=== PATIENT | male | born 1945 | race Caucasian/White ===

== ENCOUNTER 2017-01-27 15:36 | Observation (INO) | payer MEDICARE, MEDICAID ==
[~2017-01-27] VITALS: Ht 157.5 cm; Wt 73.0 kg
[~2017-01-27 15:36] MED LIST: ALPR0.5T6 PO; AMLO-147 PO; ATOR80TA75 PO; HYDR-2934 PO; IMIQ1CRE14; LISI10TA2 PO; LOPE2CAP PO; METF500T3 PO; MICO1POW; NAPR-688 PO; OMEG-135 PO; OMEP20CA16 PO
[2017-01-27] MEDS ORDERED: ASPIRIN 325 MG TAB PO STA (16:58)
[2017-01-27] MEDS ORDERED: NITROGLYCERIN 2% 1 GM OINT PKT TD STA (16:58)
[2017-01-27 17:25] LABS: ADD SCAN DIFF NO
[2017-01-27 17:28] LABS: BASOPHIL # 0.1 10^3/ul (0.0-0.1); BASOPHILS % 0.7 % (0.0-2.0); EOSINOPHILS # 0.3 10^3/ul (0.0-0.5); EOSINOPHILS % 4.9 % (0.0-7.0); LYMPHOCYTES # 1.9 10^3/ul (0.8-2.9); LYMPHOCYTES % 28.1 % (15.0-51.0); MEAN CORPUSCULAR HGB CONC 33.3 g/dl (32.0-37.0); MEAN CORPUSCULAR VOLUME 84.1 fl (82.0-101.0); MEAN PLATELET VOLUME 11.7 fl (7.4-10.4); MONOCYTE # 0.4 10^3/ul (0.3-0.9); MONOCYTES % 6.6 % (0.0-11.0); NEUTROPHILS % 59.4 % (39.0-77.0); PLATELET COUNT 230 10^3/UL (140-415); RED BLOOD COUNT 4.64 10^6/ul (4.70-6.10); RED CELL DISTRIBUTION WIDTH 14.7 % (11.5-14.5); WHITE BLOOD COUNT 6.7 10^3/ul (4.8-10.8)
[2017-01-27] MEDS ORDERED: LISI40TA9 PO (17:32)
[2017-01-27] MEDS ORDERED: TAMS-14 PO (17:32)
[2017-01-27] MEDS ORDERED: ESCI20TA PO (17:32)
[2017-01-27] MEDS ORDERED: EZET10TA3 PO (17:32)
[2017-01-27] MEDS ORDERED: FER325 PO (17:33)
[2017-01-27 17:37] VITALS: TEMP 98
[2017-01-27] MEDS ORDERED: DIPH1TAB25 PO (17:37)
--- NOTE | 2017-01-27 17:47 | RADRPT ---
PROCEDURE: XR Chest. CLINICAL INDICATION: Chest pain. TECHNIQUE: Single frontal view. COMPARISON: None. FINDINGS: There is mild atelectasis at the lung bases. The lungs are otherwise clear. The heart size is normal. There is no pleural effusion. There is no pneumothorax. IMPRESSION: 1. Mild atelectasis at the lung bases. 2. Otherwise normal chest x-ray. RPTAT: QQ .Darryl Richardson MD, MD Date Time Electronically viewed and signed by .Darryl Richardson MD, MD on 01/27/2017 17:47 .R/
[2017-01-27 17:48] LABS: CHLORIDE 101 mmol/L (97-110); SODIUM 139 mmol/L (135-144)
[2017-01-27 17:51] LABS: ANION GAP 15 (8-16); CARBON DIOXIDE 27 mmol/L (21-31); CREATININE 1.13 mg/dl (0.61-1.24)
[2017-01-27 17:52] LABS: BLOOD UREA NITROGEN 16 mg/dl (7-20); CALCIUM 9.4 mg/dl (8.4-10.2); GLUCOSE 93 mg/dl (70-220)
[2017-01-27 18:05] LABS: TROPONIN-I < 0.012 ng/ml (0.00-0.12)
--- NOTE | 2017-01-27 20:39 | ERA ---
ER Documentation Chief Complaint Date/Time DATE: 01/27/17 TIME: 20:32 Chief Complaint chest pain radaites to the back HPI This is a 71-year-old male who signs of substernal chest pain over the past 2-3 days. Describes the pain as a pressure sensation is getting worse happens with ambulation and at rest. The pain is pressure that radiates to his neck with shortness of breath and sweaty. Patient says he has diabetes, high cholesterol, hypertension. She is currently has no pain. ROS All systems reviewed and are negative except as per history of present illness. Medications Home Meds Reported Medications Diphenoxylate HCl/Atropine (Diphenoxylate-Atrop 2.5-0.025) 1 Each Tablet, 2.5- 25 PO Q8, #30 01/27/17 Ferrous Sulfate* (Ferrous Sulfate*) 325 Mg Tabec, 325 MG PO BID, TAB 01/27/17 Lisinopril* (Lisinopril*) 40 Mg Tablet, 40 MG PO DAILY, #30 TAB 01/27/17 Tamsulosin Hcl* (Flomax*) 0.4 Mg Cap.er.24h, 0.4 MG PO DAILY, CAP 01/27/17 Ezetimibe* (Zetia*) 10 Mg Tablet, 10 MG PO HS, TAB 01/27/17 Escitalopram Oxalate* (Lexapro*) 20 Mg Tablet, 20 MG PO DAILY, #30 TAB 01/27/17 Metformin Hcl* (Metformin Hcl* ER) 500 Mg Tab.sr.24h, PO DAILY 05/01/13 Amlodipine Besylate* (Amlodipine Besylate*) 10 Mg Tablet, PO DAILY 05/01/13 Discontinued Reported Medications Omeprazole* (Omeprazole*) 20 Mg Capsule.dr, PO BID 05/01/13 Naproxen* (Naproxen*) 500 Mg Tablet, PO BID 05/01/13 Miconazole (Miconazole Powder) 1 Gm Powder 05/01/13 Lisinopril* (Lisinopril*) 10 Mg Tablet, PO DAILY 05/01/13 Imiquimod (Imiquimod) 1 Each Cream.pack 05/01/13 Hydrocodone Bit/Acetaminophen (Hydrocodone-Apap 5-500 Tablet) 1 Tab Tablet, PO QID 05/01/13 Fish Oil* (Fish Oil*) 1,000 Mg Cap, 2 CAP PO DAILY 05/01/13 Atorvastatin* (Atorvastatin*) 80 Mg Tablet, PO DAILY 05/01/13 Alprazolam* (Alprazolam*) 0.5 Mg Tablet, PO HS 05/01/13 Discontinued Scripts Loperamide Hcl* (Imodium*) 2 Mg Capsule, 2 MG PO .AFTER EA LOOSE BM Y for DIARRHEA, #10 TAB Prov:MINESH KEITA MD 09/11/16 Allergies Allergies: Coded Allergies: Penicillins (Verified Allergy, Unknown, 01/27/17) celecoxib (Verified Allergy, Unknown, RASH, 01/27/17) egg (Verified Allergy, Unknown, 01/27/17) PMhx/Soc History of Surgery: Yes (R KNEE REPLACEMENT, BACK SURGERIES) Anesthesia Reaction: No Hx Neurological Disorder: Yes (STROKE) Hx Respiratory Disorders: No Hx Cardiac Disorders: Yes (HTN, CHF) Hx Psychiatric Problems: No Hx Miscellaneous Medical Probl: No (DM) Hx Alcohol Use: No Hx Substance Use: No Hx Tobacco Use: Yes Smoking Status: Former smoker FmHx Family History: No coronary disease Physical Exam Vitals Vital Signs Date Time Temp Pulse Resp B/P Pulse Ox O2 Delivery O2 Flow Rate FiO2 01/27/17 17:37 Nasal Cannula 2 01/27/17 17:37 98.0 58 15 152/65 100 Room Air 01/27/17 15:45 98.0 65 19 196/94 100 Physical Exam Const: Well-developed, well-nourished, disheveled Head: Atraumatic, normocephalic Eyes: Normal Conjunctiva, PERRLA, EOMI, normal sclera, no nystagmus ENT: Normal External Ears, Nose and Mouth, moist mucus membranes. Neck: Full range of motion. No meningismus, no lymphadenopathy. Resp: Clear to auscultation bilaterally, no wheezing, rhonchi, rales Cardio: Regular rate and rhythm, no murmurs, S1 S2 present Abd: Soft, non tender x 4, non distended. Normal bowel sounds, no guarding or rebound, no pulsitile abdominal masses or bruits Skin: No petechiae or rashes, no ecchymosis , no maculopapular rash Back: No midline or flank tenderness Ext: No cyanosis, or edema, FROM x 4, normal inspection, neurovascularly intact x 4 Neur: Awake and alert, STR 5/5 x 4, sensation intact x 4, no focal findings, cerebellum intact Psych: Normal Mood and Affect Result Diagram: 01/27/17 1716 01/27/17 1716 Results 24 hrs Laboratory Tests Test 01/27/17 17:16 White Blood Count 6.710^3/ul Red Blood Count 4.6410^6/ul Hemoglobin 13.0g/dl Hematocrit 39.0% Mean Corpuscular Volume 84.1fl Mean Corpuscular Hemoglobin 28.0pg Mean Corpuscular Hemoglobin Concent 33.3g/dl Red Cell Distribution Width 14.7% Platelet Count 37254^3/UL Mean Platelet Volume 11.7fl Neutrophils % 59.4% Lymphocytes % 28.1% Monocytes % 6.6% Eosinophils % 4.9% Basophils % 0.7% Nucleated Red Blood Cells % 0.0/100WBC Neutrophils # 4.010^3/ul Lymphocytes # 1.910^3/ul Monocytes # 0.410^3/ul Eosinophils # 0.310^3/ul Basophils # 0.110^3/ul Nucleated Red Blood Cells # 0.010^3/ul Sodium Level 139mmol/L Potassium Level 4.0mmol/L Chloride Level 101mmol/L Carbon Dioxide Level 27mmol/L Anion Gap 15 Blood Urea Nitrogen 16mg/dl Creatinine 1.13mg/dl Glucose Level 93mg/dl Calcium Level 9.4mg/dl Troponin I < 0.012ng/ml Current Medications Medications (Trade) Dose Ordered Sig/Herbert Route PRN Reason Start Time Stop Time Status Last Admin Dose Admin Aspirin (Aspirin) 325 mg ONCE STAT PO 01/27/17 16:58 01/27/17 17:01 DC 01/27/17 17:11 Nitroglycerin (Nitroglycerin 2% Oint) 1 inch ONCE STAT TD 01/27/17 16:58 01/27/17 17:01 DC 01/27/17 17:12 Procedures/MDM EKG: Rate/Rhythm: Normal sinus rhythm, left bundle branch block, left axis deviation QRS, ST, QT: NORMAL [place], wide QRS, QT] Impression: Abnormal EKG] PROCEDURE: XR Chest. CLINICAL INDICATION: Chest pain. TECHNIQUE: Single frontal view. COMPARISON: None. FINDINGS: There is mild atelectasis at the lung bases. The lungs are otherwise clear. The heart size is normal. There is no pleural effusion. There is no pneumothorax. IMPRESSION: 1. Mild atelectasis at the lung bases. 2. Otherwise normal chest x-ray. RPTAT: QQ .Darryl Richardson MD, MD Date Time Electronically viewed and signed by .Darryl Richardson MD, MD on 01/27/2017 17:47 .R/ CC: BRITANY PERALTA DO . Patient's symptoms are concerning for cardiac cause will require inpatient workup and continuous monitoring. Further w/u for ischemia, arrhythmia, PE or dissection will be deferred to the inpatient team. Accepting Care Team: Current data and ongoing care discussed. Time: Time of admission Primary Provider: keke Consulting: [XOXOXO] Outstanding Data: none Departure Diagnosis: Primary Impression: Chest pain Qualified Code: R07.9 - Chest pain, unspecified type Condition: Stable BRITANY PERALTA DO January 27, 2017 20:39
[2017-01-27] MEDS ORDERED: ONDANSETRON 4 MG INJ IV PRN (21:00)
[2017-01-27] MEDS ORDERED: ACETAMINOPHEN 325 MG TAB PO PRN (21:00)
[2017-01-27 21:29] VITALS: PULSE 66
[2017-01-27 22:00] VITALS: BP 183/76; PULSE 59; RESP 18; Ht 157.5 cm; Wt 73.0 kg
[2017-01-27] MEDS: hydrALAzine 20 MG INJ IV PRN (23:24)
[2017-01-28] VITALS (14 sets, daily range): BP systolic 148–168; BP diastolic 67–83; PULSE 54–70; RESP 16–20
[2017-01-28] MEDS ORDERED: FAMOTIDINE 20 MG INJ IV SCH
[2017-01-28] MEDS ORDERED: ACETAMINOPHEN 325 MG TAB PO PRN
[2017-01-28] MEDS ORDERED: NACL 0.9% 3 ML SYG IV SCH
[2017-01-28] MEDS ORDERED: METOCLOPRAMIDE 10 MG INJ IV PRN ×3 (00:02→00:30)
[2017-01-28] MEDS: SOD CHLORIDE 0.9% 1,000 ML IV SCH ×3 (01:01→16:01)
[2017-01-28] MEDS: FAMOTIDINE 20 MG INJ IV SCH ×2 (01:01→23:36)
[2017-01-28 04:22] LABS: ADD SCAN DIFF NO
[2017-01-28 04:27] LABS: BASOPHIL # 0.1 10^3/ul (0.0-0.1); BASOPHILS % 0.9 % (0.0-2.0); EOSINOPHILS # 0.4 10^3/ul (0.0-0.5); EOSINOPHILS % 5.4 % (0.0-7.0); HEMATOCRIT 37.9 % (42.0-52.0); HEMOGLOBIN 11.9 g/dl (14.0-18.0); LYMPHOCYTES # 1.9 10^3/ul (0.8-2.9); LYMPHOCYTES % 28.9 % (15.0-51.0); MEAN CORPUSCULAR HEMOGLOBIN 27.1 pg (29.0-33.0); MEAN CORPUSCULAR HGB CONC 31.4 g/dl (32.0-37.0); MEAN CORPUSCULAR VOLUME 86.3 fl (82.0-101.0); MEAN PLATELET VOLUME 11.6 fl (7.4-10.4); MONOCYTE # 0.5 10^3/ul (0.3-0.9); MONOCYTES % 7.4 % (0.0-11.0); NEUTROPHIL # 3.7 10^3/ul (1.6-7.5); NEUTROPHILS % 57.1 % (39.0-77.0); PLATELET COUNT 184 10^3/UL (140-415); RED BLOOD COUNT 4.39 10^6/ul (4.70-6.10); WHITE BLOOD COUNT 6.5 10^3/ul (4.8-10.8)
[2017-01-28 05:04] LABS: CREATINE KINASE 82 IU/L (23-200)
[2017-01-28 05:07] LABS: ALBUMIN 3.4 g/dl (3.3-4.9); ALBUMIN/GLOBULIN RATIO 1.13; BILIRUBIN,INDIRECT 0.3 mg/dl (0-1.1); BILIRUBIN,TOTAL 0.3 mg/dl (0.2-1.3); CHOL/HDL RATIO 7.6 RATIO; CREATININE 1.27 mg/dl (0.61-1.24); TOTAL PROTEIN 6.4 g/dl (6.1-8.1)
[2017-01-28 05:09] LABS: CK-MB 1.66 ng/ml (0.0-2.4); TROPONIN-I < 0.012 ng/ml (0.00-0.12)
--- NOTE | 2017-01-28 07:06 | HP ---
Date/Time of Note Date/Time of Note DATE: 01/28/17 TIME: 06:51 Assessment/Plan VTE Prophylaxis VTE Prophylaxis Intervention: LMWH Lines/Catheters IV Catheter Type (from Nrs): Peripheral IV Central line still needed: No Urinary Cath still in place: No Assessment/Plan Chief Complaint/Hosp Course This is a 71-year-old male being admitted to telemetry floor for: #1 chest pain: Rule out ACS versus costochondritis. Patient does have risk factors for cardiac disease as well as abnormal EKG. of note ,patient does have tenderness to palpation of the bilateral chest. At the current time will trend troponins. He does have a nitro patch placed. Maintain O2 sats above 92%. Echocardiogram for the a.m. Cardiology consult. N.p.o. except meds, IV fluids at 70 cc an hour normal saline #2 diabetes mellitus: He is not a insulin-dependent diabetic. Will hold oral medications at this time. Insulin sliding scale. #3 hypertension: Continue amlodipine and lisinopril #4 depression: Continue escitalopram #5 BPH: Continue flomax. #6 DVT and GI prophylaxis: Lovenox and famotidine Further management as indicated per clinical course Problems: HPI/ROS Admit Date/Time Admit Date/Time January 27, 2017 at 20:40 Hx of Present Illness This is a 71-year-old male who signs of substernal chest pain over the past 2-3 days. Describes the pain as a pressure sensation is getting worse happens with ambulation and at rest. The pain is pressure-like that radiates to his neck with shortness of breath and sweaty. On examination patient had tenderness to palpation over the left anterior chest as well as the right anterior chest. Allergies: Penicillin, eggs, celecoxib Medications: See BARBARA TORRES Const: As per HPI Eyes : No pain discharge or redness or change in visual acuity ENT: No pain, sore throat, congestion, congestion, dysphagia or discharge Respiratory: No shortness of breath, cough, sputum, wheezing, or pleuritic pain Cardiovascular: As per HPI GI : no change in appetite, abdominal pain, nausea, vomiting, diarrhea, constipation, or change in the color his stool Genitourinary: No dysuria, hematuria, flank pain , discharge or CVA tenderness Musculoskeletal: No joint pain, back pain, neck pain, restricted range of motion in neck or joints Skin: No rash, bruising or hives Neuro: No headache, dizziness, syncope, seizure, focal weakness Endocrine: No polyuria, polydipsia, temperature intolerance Psych: No hallucination, depression, anxiety or suicidal ideation PMH/Family/Social Past Medical History Diabetes mellitus, hypertension, depression, BPH Past Surgical History Bilateral knee replacement, back surgeries 3 Family History Significant Family History: diabetes (Mom) Social History Alcohol Use: none Smoking Status: Former smoker (Cigars on occasion) Drug Use: none Exam/Review of Systems Vital Signs Vitals Vital Signs Date Time Temp Pulse Resp B/P Pulse Ox O2 Delivery O2 Flow Rate FiO2 01/28/17 05:07 98.6 63 20 159/74 99 01/28/17 02:32 2.0 01/27/17 22:00 Room Air Intake and Output 01/27/17 01/27/17 01/28/17 15:00 23:00 07:00 Intake Total 100 ml Balance 100 ml Exam Exam General: Patient is well-developed well-nourished The patient is alert oriented -3 lying comfortably in bed. HEENT: Atraumatic, normocephalic. The pupils are equal, round and reactive. Extraocular motor are intact Neck: Supple with full range of motion. No rigidity or meningismus Chest: Tenderness to palpation of the anterior left and right chest Lungs: Clear to auscultation bilaterally no crackles rales or wheezing Heart: Normal S1-S2, Regular rhythm and rate. No murmur, Abdomen: Soft , nontender, nondistended , bowel sounds are present. No guarding no rebound tenderness , No masses or organomegaly. No costovertebral temporal angle mass Extremities: Normal to inspection, no edema no cyanosis Neurologic: Normal mental status, speech normal, cranial nerves II through XII are intact, motor and sensory are intact, Additional Comments EKG: Rate/Rhythm: Normal sinus rhythm, questionable left bundle branch block, left axis deviation QRS, ST, QT: NORMAL [place], wide QRS, QT] Impression: Abnormal EKG] PROCEDURE: XR Chest. CLINICAL INDICATION: Chest pain. TECHNIQUE: Single frontal view. COMPARISON: None. FINDINGS: There is mild atelectasis at the lung bases. The lungs are otherwise clear. The heart size is normal. There is no pleural effusion. There is no pneumothorax. IMPRESSION: 1. Mild atelectasis at the lung bases. 2. Otherwise normal chest x-ray. Please refer to radiology reports for further information Labs Result Diagram: 01/28/17 0357 01/28/17 0357 Medications Medications Current Medications Hydralazine HCl 20 mg 20 mg Q6H PRN IV ELEVATED BLOOD PRESSURE>150 Last administered on 01/27/17 23:24; Admin Dose 20 MG; Start 01/27/17 at 23:00 Sodium Chloride (NS) 1,000 ml @ 70 mls/hr [id number] IV Last administered on 01:01; Admin Dose 70 MLS/HR; Start 01/27/17 at 23:48 Acetaminophen (Tylenol Tab) 650 mg Q6H PRN PO PAIN LEVEL 1-3 OR FEVER; Start at 00:00 Enoxaparin Sodium (Lovenox) 40 mg DAILY SC ; Start 01/28/17 at 09:00 Famotidine (Pepcid Iv) 20 mg Q24H IV Last administered on 01/28/17 01:01; Admin Dose 20 MG; Start 01/28/17 at 00:30 Metoclopramide HCl (Reglan) 5 mg Q6H PRN IV NAUSEA AND/OR VOMITING; Start at 00:30 HYUN GARCIA January 28, 2017 07:01
[2017-01-28] MEDS ORDERED: LISINOPRIL 20 MG TAB PO SCH (09:00)
[2017-01-28] MEDS ORDERED: AMLODIPINE 10 MG TAB PO SCH (09:00)
[2017-01-28] MEDS: FERROUS SULFATE (EC) 325 MG TAB PO SCH ×2 (09:08→22:35)
[2017-01-28] MEDS: ESCITALOPRAM 10 MG TAB PO SCH (09:08)
[2017-01-28] MEDS: TAMSULOSIN (SR) 0.4 MG CAP PO SCH (09:08)
[2017-01-28] MEDS: ENOXAPARIN 40 MG/0.4 ML SYG SC SCH (09:14)
[2017-01-28 09:46] LABS: CREATINE KINASE 87 IU/L (23-200)
[2017-01-28 09:59] LABS: CK-MB 1.65 ng/ml (0.0-2.4)
[2017-01-28 10:03] LABS: TROPONIN-I < 0.012 ng/ml (0.00-0.12)
--- NOTE | 2017-01-28 12:53 | RADRPT ---
Echocardiogram Report Patient Name: KOKO SAEED Gender: Male Date: 1945 Study Date: 28-Jan-2017 Pharmacy Affairs Assistant: Morena Benítez [facility] Location: [id number] Ref. Physician: HYUN GARCIA Quality: Good Procedures: Transthoracic echocardiogram with complete 2D, M-Mode, and doppler examination. Indications: Chest Pain. 2D/M Mode Doppler Measurement Value Normal Ranges Measurement Value Normal Ranges LVIDd 2D 4.4 3.5 - 5.6 cm AV Peak [place] 1.5 m/sec LVIDs 2D 3.0 2.1 - 4.1 cm AV Peak PG 8.7 mmHg LVPWd 2D 1.2 0.6 - 1.1 cm LVOT Peak [place] 1.0 m/sec IVSd 2D 1.2 0.6 - 1.1 cm LVOT Peak PG 4.2 mmHg AoR Diam 2D 2.3 2.0 - 3.7 cm MV E Peak [place] 0.7 m/sec EDV 2D 89.5 cm3 MV A Peak [place] 0.7 m/sec ESV 2D 27.9 cm3 MV E/A 1.0 LA Dimen 2D 3.7 2.3 - 4.0 cm MV Decel Time 295 msec MV Decel [place] 2 MV E/A 1.0 Findings Left Ventricle: Normal left ventricular systolic function. Normal left ventricular cavity size. Mild concentric left ventricular hypertrophy. Ejection fraction is visually estimated at 65 %. Tissue Doppler/Mitral Doppler indices are consistent with impaired relaxation (Stage I diastolic dysfunction). Right Ventricle: Normal right ventricular size. Normal right ventricular systolic function. Left Atrium: The left atrium is normal in size. Right Atrium: The right atrium is normal in size. Mitral Valve: Normal appearance and function of the mitral valve with trace physiologic regurgitation. Aortic Valve: No significant aortic stenosis or insufficiency. Aortic cusps appear mildly calcified. Tricuspid Valve: Normal appearance and function of the tricuspid valve with trace physiologic regurgitation. Pulmonic Valve: Pulmonic valve not well visualized. There is trace pulmonic regurgitation. Pericardium: Normal pericardium with no significant pericardial effusion. Aorta: Normal aortic root. IVC: Normal size and normal respiratory collapse consistent with normal right atrial pressure. Conclusions 1.Normal left ventricular systolic function. Normal left ventricular cavity size. Mild concentric left ventricular hypertrophy. Ejection fraction is visually estimated at 65 %. Tissue Doppler/Mitral Doppler indices are consistent with impaired relaxation (Stage I diastolic dysfunction). 2.Normal right ventricular size. Normal right ventricular systolic function. 3.The left atrium is normal in size. 4.The right atrium is normal in size. 5.No significant valvular stenosis or regurgitation seen. 6.Normal pericardium with no significant pericardial effusion. Electronically Signed By: Zbigniew Emanuel 28-Jan-2017 12:52:39 -0700 Patient Name: KOKO SAEED Study Date: 28-Jan-2017 [id number]
--- NOTE | 2017-01-28 15:13 | CONS ---
Date/Time of Note Date/Time of Note DATE: 01/28/17 TIME: 15:06 Assessment/Plan Assessment/Plan Additional Assessment/Plan Chest pain Hypertension, uncontrolled Preserved ejection fraction Diabetes Dyslipidemia -Serial cardiac enzymes remain negative, echocardiogram with normal ejection fraction. Patient's chest pain symptoms are reproducible with palpation of chest wall. Symptoms unlikely to be of cardiac in origin. Of note, patient with uncontrolled blood pressure. Would adjust lisinopril and Norvasc to twice daily dosing, add aspirin. Would try a trial of NSAIDs and watch renal function closely. Patient with allergy to Celebrex in the past but has taken Motrin without a problem. Consultation Date/Type/Reason Admit Date/Time January 27, 2017 at 20:40 Type of Consultation: cv Reason for Consultation Chest pain and hypertension Hx of Present Illness This is a 71-year-old female past medical history of hypertension, diabetes, dyslipidemia presents with chest pain. Symptoms are sharp in nature in the mid sternum as well as bilateral chest. Pain is worse with arm movements as well as pushing on the chest wall. Denies any shortness of breath. He denies any diaphoresis, dizziness or lightheadedness. His activity is limited secondary to multiple back and knee surgeries he does use an electric chair. Yesterday, the chest pain was severe and prolonged and for this reason he came to the emergency room for evaluation and care. He feels better today but still with intermittent episodes of chest discomfort. Unfortunately he has been homeless. 12 point review of systems was performed with all pertinent positives and negatives mentioned above and all else is negative Past Medical History Medical History: diabetes, high cholesterol, hypertension Past Surgical History Numerous orthopedic surgeries of the back and knees Family History Significant Family History: no pertinent family hx Social History Alcohol Use: none Smoking Status: Former smoker (Cigars on occasion) Drug Use: none Other Social History Unfortunately, patient homeless Exam/Review of Systems Vital Signs Vitals Vital Signs Date Time Temp Pulse Resp B/P Pulse Ox O2 Delivery O2 Flow Rate FiO2 01/28/17 14:56 98.4 63 18 164/72 93 01/28/17 02:32 2.0 01/27/17 22:00 Room Air Intake and Output 01/27/17 01/27/17 01/28/17 15:00 23:00 07:00 Intake Total 100 ml Balance 100 ml Exam No apparent distress, following commands, pleasant Constitutional: alert, oriented Head: normocephalic Neck: supple Respiratory: other (Coarse breath sounds bilaterally, no wheezing) Cardiovascular: other (S1-S2 heard, no murmurs appreciated), regular rate and rhythm Gastrointestinal: bowel sounds, non-tender, other (No guarding), soft Musculoskeletal: other (Chest wall is tender to palpation, pain elicited is same pain patient complaining of) Extremities: other (No edema or cyanosis) Results Result Diagram: 01/28/17 0357 01/28/17 0357 Results 24 hrs Laboratory Tests Test 01/27/17 17:16 01/28/17 03:57 01/28/17 08:50 White Blood Count 6.7 6.5 Red Blood Count 4.64 L 4.39 L Hemoglobin 13.0 L 11.9 L Hematocrit 39.0 L 37.9 L Mean Corpuscular Volume 84.1 86.3 Mean Corpuscular Hemoglobin 28.0 L 27.1 L Mean Corpuscular Hemoglobin Concent 33.3 31.4 L Red Cell Distribution Width 14.7 H 15.0 H Platelet Count 230 184 Mean Platelet Volume 11.7 H 11.6 H Neutrophils % 59.4 57.1 Lymphocytes % 28.1 28.9 Monocytes % 6.6 7.4 Eosinophils % 4.9 5.4 Basophils % 0.7 0.9 Nucleated Red Blood Cells % 0.0 0.0 Neutrophils # 4.0 3.7 Lymphocytes # 1.9 1.9 Monocytes # 0.4 0.5 Eosinophils # 0.3 0.4 Basophils # 0.1 0.1 Nucleated Red Blood Cells # 0.0 0.0 Sodium Level 139 139 Potassium Level 4.0 4.0 Chloride Level 101 106 Carbon Dioxide Level 27 30 Anion Gap 15 7 #L Blood Urea Nitrogen 16 17 Creatinine 1.13 1.27 H Glucose Level 93 92 Calcium Level 9.4 9.0 Troponin I < 0.012 < 0.012 < 0.012 Hemoglobin A1c 5.6 Magnesium Level 2.0 Total Bilirubin 0.3 Direct Bilirubin 0.00 Indirect Bilirubin 0.3 Aspartate Amino Transf (AST/SGOT) 19 Alanine Aminotransferase (ALT/SGPT) 36 Alkaline Phosphatase 77 Creatine Kinase 82 87 Creatine Kinase Index 2.0 1.9 Creatinine Kinase MB (Mass) 1.66 1.65 Total Protein 6.4 Albumin 3.4 Globulin 3.00 Albumin/Globulin Ratio 1.13 Triglycerides Level 212 H Cholesterol Level 245 H LDL Cholesterol, Calculated 171 HDL Cholesterol 32 Cholesterol/HDL Ratio 7.6 Medications Medications Current Medications Hydralazine HCl 20 mg 20 mg Q6H PRN IV ELEVATED BLOOD PRESSURE>150 Last administered on 01/27/17 23:24; Admin Dose 20 MG; Start 01/27/17 at 23:00 Sodium Chloride (NS) 1,000 ml @ 70 mls/hr [id number] IV Last administered on 01:01; Admin Dose 70 MLS/HR; Start 01/27/17 at 23:48 Acetaminophen (Tylenol Tab) 650 mg Q6H PRN PO PAIN LEVEL 1-3 OR FEVER; Start at 00:00 Enoxaparin Sodium (Lovenox) 40 mg DAILY SC Last administered on 01/28/17 09:14 ; Admin Dose 40 MG; Start 01/28/17 at 09:00 Famotidine (Pepcid Iv) 20 mg Q24H IV Last administered on 01/28/17 01:01; Admin Dose 20 MG; Start 01/28/17 at 00:30 Metoclopramide HCl (Reglan) 5 mg Q6H PRN IV NAUSEA AND/OR VOMITING; Start at 00:30 Escitalopram Oxalate (Lexapro) 20 mg DAILY PO Last administered on 01/28/17 09: 08; Admin Dose 20 MG; Start 01/28/17 at 09:00 EZETIMIBE (Zetia) 10 mg HS PO ; Start 01/28/17 at 21:00 Ferrous Sulfate (Ferrous Sulfate (Ec)) 325 mg BID PO Last administered on 09:08; Admin Dose 325 MG; Start 01/28/17 at 09:00 Lisinopril (Zestril) 40 mg DAILY PO Last administered on 01/28/17 09:09; Admin Dose 40 MG; Start 01/28/17 at 09:00 Tamsulosin HCl (Flomax) 0.4 mg DAILY PO Last administered on 01/28/17 09:08; Admin Dose 0.4 MG; Start 01/28/17 at 09:00 Amlodipine Besylate (Norvasc) 10 mg DAILY PO Last administered on 5/8/17at 09: 09; Admin Dose 10 MG; Start 01/28/17 at 09:00 Procedures Procedures ECG demonstrates sinus rhythm at 67 bpm, bundle branch block, nonspecific STT wave abnormalities Zbigniew Emanuel DO January 28, 2017 15:13
[2017-01-28] MEDS ORDERED: EZETIMIBE 10 MG TAB PO SCH (21:00)
[2017-01-28] MEDS: AMLODIPINE 5 MG TAB PO SCH (22:35)
[2017-01-29] VITALS (10 sets, daily range): BP systolic 126–185; BP diastolic 70–81; PULSE 52–67; RESP 16–18
[2017-01-29] MEDS ORDERED: ZOLPIDEM 5 MG TAB PO PRN ×2 (01:00)
[2017-01-29] MEDS: SOD CHLORIDE 0.9% 1,000 ML IV SCH (04:24)
[2017-01-29 08:28] LABS: ADD SCAN DIFF NO
[2017-01-29] MEDS: TAMSULOSIN (SR) 0.4 MG CAP PO SCH (08:39)
[2017-01-29] MEDS: ESCITALOPRAM 10 MG TAB PO SCH (08:39)
[2017-01-29] MEDS: FERROUS SULFATE (EC) 325 MG TAB PO SCH (08:40)
[2017-01-29] MEDS: AMLODIPINE 5 MG TAB PO SCH (08:40)
[2017-01-29] MEDS: ENOXAPARIN 40 MG/0.4 ML SYG SC SCH (08:45)
[2017-01-29 08:50] LABS: BASOPHIL # 0.1 10^3/ul (0.0-0.1); BASOPHILS % 0.9 % (0.0-2.0); EOSINOPHILS # 0.3 10^3/ul (0.0-0.5); EOSINOPHILS % 4.8 % (0.0-7.0); HEMATOCRIT 37.6 % (42.0-52.0); LYMPHOCYTES # 1.4 10^3/ul (0.8-2.9); LYMPHOCYTES % 25.5 % (15.0-51.0); MEAN CORPUSCULAR HEMOGLOBIN 27.3 pg (29.0-33.0); MEAN CORPUSCULAR HGB CONC 31.9 g/dl (32.0-37.0); MEAN CORPUSCULAR VOLUME 85.5 fl (82.0-101.0); MONOCYTE # 0.4 10^3/ul (0.3-0.9); MONOCYTES % 6.7 % (0.0-11.0); NEUTROPHIL # 3.4 10^3/ul (1.6-7.5); NEUTROPHILS % 61.9 % (39.0-77.0); PLATELET COUNT 199 10^3/UL (140-415); RED CELL DISTRIBUTION WIDTH 14.6 % (11.5-14.5); WHITE BLOOD COUNT 5.4 10^3/ul (4.8-10.8)
[2017-01-29] MEDS ORDERED: LISINOPRIL 20 MG TAB PO SCH (09:00)
[2017-01-29 09:19] LABS: CALCIUM 9.1 mg/dl (8.4-10.2); CREATININE 1.04 mg/dl (0.61-1.24)
--- NOTE | 2017-01-29 10:57 | PDOCDIS ---
Discharge Instructions CONDITION Patient Condition: Good HOME CARE INSTRUCTIONS: Diet Instructions: Regular ACTIVITY: Activity Restrictions: No Restrictions FOLLOW UP/APPOINTMENTS Appointments F/U WITH YOUR PCP IN 1-2 WEEKS CLAUDIA ALVARADO January 29, 2017 10:57
[2017-01-29] MEDS: hydrALAzine 20 MG INJ IV PRN (12:02)
--- NOTE | 2017-01-29 16:39 | DS ---
DATE OF ADMISSION: 01/27/2017 DATE OF DISCHARGE: 01/29/2017 DISCHARGE DIAGNOSES: 1. Chest pain, atypical secondary to musculoskeletal pain, likely from costochondritis. Recommenda tion is for ibuprofen. 2. Noninsulin Insulin-requiring diabetes. Continue oral medications. 3. Hypertension. Continue home amlodipine and lisinopril. 4. Depression. Continue home medications. 4. Benign prostatic hypertrophy. Continue Flomax. HOSPITAL COURSE: The patient is a 51-year-old male with a history of diabetes, not requiring insuli n, hypertension, depression, BPH. The patient presents with chest pain. It was atypical in present ation. It was reproducible to palpation. The patient's troponins were negative x3. He did have a 2D echo that showed a preserved EF at 60%, stage I diastolic dysfunction. The patient was seen by c ardiology and it was felt that pain is likely musculoskeletal in origin, likely from costochondritis . No further diagnostics were recommended. The patient was felt to be stable for discharge. Of no te, he is homeless and lives in a motel nearby. The patient was seen by social media specialist prior to disc harge. On day of discharge, the patient's vitals, labs, physical exam were stable. He had no acute complaints. Questions were answered. CONDITION ON DISCHARGE: Stable. DISPOSITION: To home. MEDICATIONS: Patient is to continue usual home medications. No new medications were prescribed. T he patient was advised to take Motrin as needed for his musculoskeletal pain. Once again, no other new medications were prescribed. FOLLOWUP: The patient is to follow up with PCP in 1 to 2 weeks. ____ minutes were spent coordinating discharge of patient. Dictated By: CLAUDIA ALVARADO MD BS/NTS Conf#: [id number] DID#: [id number]
[2017-01-30] MEDS ORDERED: FAMOTIDINE 20 MG TAB PO SCH (09:00)
== END 2017-01-29 13:30 | disposition home or self-care (01) ==
LOC: E/R 15:36 → TEL 20:40
PROVIDERS: ADMIT Family Medicine; ATTEND Family Medicine
DX: R07.9 Chest pain, unspecified (principal); I11.0 Hypertensive heart disease with heart failure; I50.9 Heart failure, unspecified; E11.9 Type 2 diabetes mellitus without complications; Z79.84 Long term (current) use of oral hypoglycemic drugs; E78.00 Pure hypercholesterolemia, unspecified; N40.0 Benign prostatic hyperplasia without lower urinary tract symptoms; F32.9 Major depressive disorder, single episode, unspecified; E78.5 Hyperlipidemia, unspecified; Z88.8 Allergy status to other drugs, medicaments and biological substances; Z88.0 Allergy status to penicillin; Z91.012 Allergy to eggs; Z86.73 Personal history of transient ischemic attack (TIA), and cerebral infarction without residual deficits; Z96.653 Presence of artificial knee joint, bilateral; Z87.891 Personal history of nicotine dependence; Z83.3 Family history of diabetes mellitus
CPT/HCPCS: 36415; 71010; 80048; 80053; 80061; 82550; 82553; 83036; 83735; 84484; 85025; 93005; 93306; 96372; 96374; 96376; 99285; G0378; J0360; J1650; J7030

== ENCOUNTER 2017-02-03 06:45 | Emergency (ER) | payer MEDICARE, MEDICAID ==
[~2017-02-03] VITALS: Wt 71.0 kg
[~2017-02-03 06:45] MED LIST changes: -ALPR0.5T6 PO; -ATOR80TA75 PO; +DIPH1TAB25 PO; +ESCI20TA PO; +EZET10TA3 PO; +FER325 PO; -HYDR-2934 PO; -IMIQ1CRE14; -LISI10TA2 PO; +LISI40TA9 PO; -LOPE2CAP PO; -MICO1POW; -NAPR-688 PO; -OMEG-135 PO; -OMEP20CA16 PO; +TAMS-14 PO
[2017-02-03 07:01] VITALS: TEMP 98.5
[2017-02-03] MEDS ORDERED: ASPIRIN 81 MG TAB PO STA (07:22)
[2017-02-03] MEDS ORDERED: AMLODIPINE 5 MG TAB PO ONE ×2 (07:30→16:30)
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
[2017-02-03 08:14] LABS: ADD SCAN DIFF NO
[2017-02-03 08:18] LABS: BASOPHIL # 0.1 10^3/ul (0.0-0.1); BASOPHILS % 0.7 % (0.0-2.0); EOSINOPHILS # 0.3 10^3/ul (0.0-0.5); EOSINOPHILS % 4.4 % (0.0-7.0); HEMATOCRIT 43.9 % (42.0-52.0); HEMOGLOBIN 14.1 g/dl (14.0-18.0); LYMPHOCYTES # 1.6 10^3/ul (0.8-2.9); LYMPHOCYTES % 22.9 % (15.0-51.0); MEAN CORPUSCULAR HEMOGLOBIN 27.6 pg (29.0-33.0); MEAN CORPUSCULAR HGB CONC 32.1 g/dl (32.0-37.0); MEAN CORPUSCULAR VOLUME 85.9 fl (82.0-101.0); MEAN PLATELET VOLUME 11.8 fl (7.4-10.4); MONOCYTE # 0.5 10^3/ul (0.3-0.9); MONOCYTES % 6.6 % (0.0-11.0); NEUTROPHIL # 4.5 10^3/ul (1.6-7.5); NEUTROPHILS % 65.3 % (39.0-77.0); PLATELET COUNT 289 10^3/UL (140-415); RED BLOOD COUNT 5.11 10^6/ul (4.70-6.10); RED CELL DISTRIBUTION WIDTH 14.4 % (11.5-14.5); WHITE BLOOD COUNT 6.8 10^3/ul (4.8-10.8)
[2017-02-03 08:39] LABS: ALBUMIN 4.5 g/dl (3.3-4.9); CHLORIDE 100 mmol/L (97-110)
[2017-02-03 08:40] LABS: INR 0.97; PROTIME 12.9 Sec (12.2-14.2); SODIUM 141 mmol/L (135-144)
[2017-02-03 08:42] LABS: ALANINE AMINOTRANSFERASE 39 IU/L (13-69); ALBUMIN/GLOBULIN RATIO 1.25; ALKALINE PHOSPHATASE 101 IU/L (42-121); ANION GAP 15 (8-16); ASPARTATE AMINO TRANSFERASE 25 IU/L (15-46); BILIRUBIN,INDIRECT 0.5 mg/dl (0-1.1); BILIRUBIN,TOTAL 0.5 mg/dl (0.2-1.3); BLOOD UREA NITROGEN 14 mg/dl (7-20); CARBON DIOXIDE 30 mmol/L (21-31); GLUCOSE 93 mg/dl (70-220); TOTAL PROTEIN 8.1 g/dl (6.1-8.1)
[2017-02-03 08:43] LABS: CALCIUM 10.3 mg/dl (8.4-10.2)
[2017-02-03 08:45] LABS: ACETAMINOPHEN < 10.0 ug/ml (10.0-30.0); ETHANOL < 10.0 mg/dl; SALICYLATE < 1.0 mg/dl (5.0-30.0)
--- NOTE | 2017-02-03 08:48 | RADRPT ---
PROCEDURE: US Lower extremity Venous. CLINICAL INDICATION: Left leg pain and swelling TECHNIQUE: Multiple sonographic images of the left lower extremity deep venous system was obtained utilizing grayscale, color-flow, compressive sonography and doppler imaging with augmentation. The images were reviewed on a PACS workstation. COMPARISON: None. FINDINGS: There is normal compressibility and flow within the left common femoral, deep femoral, superficial f emoral and popliteal veins. Normal color flow is seen with respiratory variability and augmentation. IMPRESSION: No sonographic evidence for deep venous thrombosis in the left lower extremity. RPTAT: HPNM Physician Basia Date Time Electronically viewed and signed by Physician Basia on 02/03/2017 08:48 /
--- NOTE | 2017-02-03 08:48 | RADRPT ---
PROCEDURE: XR Chest. CLINICAL INDICATION: Shortness of breath. TECHNIQUE: A single portable view of the chest was obtained. COMPARISON: 01/27/2017 FINDINGS: The aorta is tortuous and atherosclerotic. The cardiomediastinal silhouette is otherwise within nor mal limits. The lungs and pleural spaces are clear. The soft tissues and osseous structures demons trate benign age related senescent changes. IMPRESSION: No acute cardiopulmonary disease. RPTAT: HPNM Physician Basia Date Time Electronically viewed and signed by Raheem Albrecht Physician on 02/03/2017 08:47 /
[2017-02-03 08:53] LABS: TROPONIN-I < 0.012 ng/ml (0.00-0.12)
[2017-02-03 10:27] LABS: ADD UMIC YES; URINE BILIRUBIN (Dip) NEGATIVE (NEGATIVE); URINE BLOOD (Dip) NEGATIVE (NEGATIVE); URINE COLOR LT. YELLOW (YELLOW); URINE GLUCOSE (Dip) NEGATIVE (NEGATIVE); URINE KETONES (Dip) NEGATIVE (NEGATIVE); URINE LEUKOCYTE ESTERASE (Dip) 1+ (NEGATIVE); URINE NITRITE (Dip) POSITIVE (NEGATIVE); URINE TOTAL PROTEIN (Dip) NEGATIVE (NEGATIVE); URINE UROBILINOGEN (Dip) 0.2 E.U./dL (0.1-1.0)
[2017-02-03 10:43] LABS: BACTERIA,URINE MANY; URINE RBCS 0-2 /HPF (0)
[2017-02-03 10:57] LABS: BARBITURATES NEGATIVE (NEGATIVE); BENZODIAZEPINES NEGATIVE (NEGATIVE); CANNABINOIDS NEGATIVE (NEGATIVE); COCAINE NEGATIVE (NEGATIVE); OPIATES NEGATIVE (NEGATIVE)
[2017-02-03] MEDS ORDERED: CIPROFLOXACIN 500 MG TAB PO ONE (11:00)
--- NOTE | 2017-02-03 11:44 | PSY ---
Date/Time of Note Date/Time of Note DATE: 02/03/17 TIME: 14:41 Psychiatric Subjective Eval Consent Pt consented to telemedicine: Yes Subjective Evaluation Patient location: emergency Chief Complaint: headache and feels suidal for the past few wks. has no place to stay History of present illness The patient is a 71 yo male with a ho depression and suicide attempts. He presents with depression and a strong desire to and kill himself. Denies psychosis or mariah or drug use. Past Psych Hx: reports one past admission for suicide attempt 3 months ago PMHx: DM, htn MEds: as in medical notes All: as above, pcn, celecoxib, eggs MSE: appears stated age, bearded, organizing something on his bed, began interview by yelling about being homeless and a , was redirectable, organized, no delusions, no avh, very intent about wanting to Medical history Problems Medical Problems: (1) Chest pain Status: Acute (2) Diarrhea Status: Acute (3) Nicolas catheter in place Status: Acute Allergies: Coded Allergies: Penicillins (Verified Allergy, Unknown, 02/03/17) celecoxib (Verified Allergy, Unknown, RASH, 02/03/17) egg (Verified Allergy, Unknown, 02/03/17) Psychiatric Objective Eval Mental Status Examination: Laboratory Results Laboratory Tests Test 02/03/17 07:38 02/03/17 09:40 02/03/17 09:42 White Blood Count 6.810^3/ul Red Blood Count 5.1110^6/ul Hemoglobin 14.1g/dl Hematocrit 43.9% Mean Corpuscular Volume 85.9fl Mean Corpuscular Hemoglobin 27.6pg Mean Corpuscular Hemoglobin Concent 32.1g/dl Red Cell Distribution Width 14.4% Platelet Count 48061^3/UL Mean Platelet Volume 11.8fl Neutrophils % 65.3% Lymphocytes % 22.9% Monocytes % 6.6% Eosinophils % 4.4% Basophils % 0.7% Nucleated Red Blood Cells % 0.0/100WBC Neutrophils # 4.510^3/ul Lymphocytes # 1.610^3/ul Monocytes # 0.510^3/ul Eosinophils # 0.310^3/ul Basophils # 0.110^3/ul Nucleated Red Blood Cells # 0.010^3/ul Prothrombin Time 12.9Sec Prothrombin Time Ratio 1.0 INR International Normalized Ratio 0.97 Sodium Level 141mmol/L Potassium Level 4.0mmol/L Chloride Level 100mmol/L Carbon Dioxide Level 30mmol/L Anion Gap 15 Blood Urea Nitrogen 14mg/dl Creatinine 1.10mg/dl Glucose Level 93mg/dl Calcium Level 10.3mg/dl Total Bilirubin 0.5mg/dl Direct Bilirubin 0.00mg/dl Indirect Bilirubin 0.5mg/dl Aspartate Amino Transf (AST/SGOT) 25IU/L Alanine Aminotransferase (ALT/SGPT) 39IU/L Alkaline Phosphatase 101IU/L Troponin I < 0.012ng/ml Total Protein 8.1g/dl Albumin 4.5g/dl Globulin 3.60g/dl Albumin/Globulin Ratio 1.25 Salicylates Level < 1.0mg/dl Acetaminophen Level < 10.0ug/ml Ethyl Alcohol Level < 10.0mg/dl Urine Opiates Screen NEGATIVE Urine Barbiturates NEGATIVE Urine Amphetamines Screen NEGATIVE Urine Benzodiazepines Screen NEGATIVE Urine Cocaine Screen NEGATIVE Urine Cannabinoids NEGATIVE Urine Color LT. YELLOW Urine Clarity CLEAR Urine pH 6.0 Urine Specific [place] 1.020 Urine Ketones NEGATIVE Urine Nitrite POSITIVE Urine Bilirubin NEGATIVE Urine Urobilinogen 0.2 E.U./dL Urine Leukocyte Esterase 1+ Urine Microscopic RBC 0-2/HPF Urine Microscopic WBC 25-50/HPF Urine Epithelial Cells RARE Urine Bacteria MANY Urine Hemoglobin NEGATIVE Urine Glucose NEGATIVE% Urine Total Protein NEGATIVE Assessment and Plan Assessment/Diagnosis [place] I: MDD Recommendation/Plan Medication Management 71 yo male with MDD and desire to kill self. -inpatient admit, voluntary -defer med rec to inpatient treatment team BECKA DOOLEY February 03, 2017 11:44
[2017-02-03] MEDS ORDERED: LORAZEPAM 1 MG TAB PO ONE (16:30)
[2017-02-03] MEDS ORDERED: CIPROFLOXACIN 500 MG TAB PO SCH (21:00)
[2017-02-04 01:52] VITALS: BP 155/84; PULSE 69; RESP 16
--- NOTE | 2017-02-04 04:26 | EN ---
Date/Time of Note Date/Time of Note DATE: 02/04/17 TIME: 04:26 ER Progress Note Patient at this time is on a voluntary hold. Patient wishes to sign out AGAINST MEDICAL ADVICE. He is alert and oriented 4 with goal oriented speech. Denies suicidal homicidal ideation. Denies auditory visual hallucinations. Patient will be allowed to sign out AGAINST MEDICAL ADVICE MELANIE GRIMM February 04, 2017 04:26
== END 2017-02-04 06:58 | disposition home or self-care (01) ==
LOC: E/R 06:45
DX: N39.0 Urinary tract infection, site not specified (principal); R45.851 Suicidal ideations; I10 Essential (primary) hypertension; E11.9 Type 2 diabetes mellitus without complications; I50.9 Heart failure, unspecified; F17.210 Nicotine dependence, cigarettes, uncomplicated; Z79.84 Long term (current) use of oral hypoglycemic drugs; Z96.651 Presence of right artificial knee joint
CPT/HCPCS: 36415; 71010; 80053; 80306; 80307; 81001; 81003; 84484; 85025; 85610; 87086; 93005; 93971

== ENCOUNTER 2017-02-10 16:48 | Emergency (ER) | payer MEDICARE, MEDICAID ==
[~2017-02-10] VITALS: Ht 152.4 cm; Wt 78.0 kg
[2017-02-10 16:53] VITALS: Ht 152.4 cm; Wt 78.0 kg
[2017-02-10] MEDS ORDERED: ACETAMINOPHEN 500 MG TAB PO STA (19:19)
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
--- NOTE | 2017-02-10 20:58 | RADRPT ---
PROCEDURE: CT Brain without contrast. CLINICAL INDICATION: Headaches for 2 years. TECHNIQUE: A CT of the brain was performed utilizing axial sections from the skull base through th e vertex without contrast. Multiplanar re-formations were generated. Images were reviewed on a high- resolution PACS workstation. CTDIvol: 44.95 mGy. DLP: 630.20 mGy-cm. One or more of the following dose reduction techniques were used: - Automated exposure control. - Adjustment of the mA and/or kV according to patient size. - Use of iterative reconstruction technique. COMPARISON: None available FINDINGS: There is mild prominence of the cerebral sulci. The ventricles are enlarged out of proportion to sul alize prominence. There is no mass effect. No acute intracranial hemorrhage is identified. There is n o extra-axial collection. No CT evidence of acute infarction is identified. A chronic lacunar infa rction is identified in the anterior right basal ganglia region. There is patchy low attenuation in the supratentorial white matter, a nonspecific finding which most likely represents the sequela of moderate to severe chronic microvascular ischemic disease. There are mild atherosclerotic arterial calcifications. There is no significant mucosal disease in the paranasal sinuses. The visualized mastoid air cells a re clear. The ossesous structures are unremarkable. The extracranial soft tissues are unremarkable. IMPRESSION: 1. Ventricular enlargement out of proportion to sulcal prominence, suggestive of normal-pressure hy drocephalus. 2. Mild prominence of cerebral sulci. 3. Moderate to severe chronic microvascular ischemic changes. 4. Chronic lacunar infarction in the anterior right basal ganglia region. 5. Atherosclerotic arterial calcifications. RPTAT: HTAR .Ty Oconnell MD, Date Time Electronically viewed and signed by .Ty Oconnell MD, on 02/10/2017 20:58 .R/
[2017-02-10] MEDS ORDERED: ACET500C5 PO (21:07)
[2017-02-10 21:26] VITALS: BP 151/69; PULSE 62; RESP 18; TEMP 98
== END 2017-02-10 21:28 | disposition home or self-care (01) ==
LOC: E/R 16:48
DX: R51 Headache (principal); I10 Essential (primary) hypertension; E11.9 Type 2 diabetes mellitus without complications; I50.9 Heart failure, unspecified; F17.210 Nicotine dependence, cigarettes, uncomplicated; Z59.0 Homelessness; Z76.5 Malingerer [conscious simulation]; Z96.651 Presence of right artificial knee joint; Z79.84 Long term (current) use of oral hypoglycemic drugs
CPT/HCPCS: 70450

== ENCOUNTER 2017-02-11 00:42 | Emergency (ER) | payer MEDICARE, MEDICAID ==
[~2017-02-11] VITALS: Ht 157.5 cm; Wt 77.5 kg
[~2017-02-11 00:42] MED LIST changes: +ACET500C5 PO
[2017-02-11 01:03] VITALS: Ht 157.5 cm; Wt 77.5 kg
[2017-02-11 04:03] LABS: ADD SCAN DIFF NO
[2017-02-11 04:06] LABS: BASOPHIL # 0.1 10^3/ul (0.0-0.1); BASOPHILS % 0.9 % (0.0-2.0); EOSINOPHILS # 0.4 10^3/ul (0.0-0.5); EOSINOPHILS % 4.7 % (0.0-7.0); HEMOGLOBIN 12.9 g/dl (14.0-18.0); LYMPHOCYTES # 2.3 10^3/ul (0.8-2.9); LYMPHOCYTES % 29.4 % (15.0-51.0); MEAN CORPUSCULAR HEMOGLOBIN 27.9 pg (29.0-33.0); MEAN CORPUSCULAR HGB CONC 32.3 g/dl (32.0-37.0); MEAN CORPUSCULAR VOLUME 86.4 fl (82.0-101.0); MEAN PLATELET VOLUME 11.3 fl (7.4-10.4); MONOCYTE # 0.6 10^3/ul (0.3-0.9); MONOCYTES % 7.5 % (0.0-11.0); NEUTROPHIL # 4.4 10^3/ul (1.6-7.5); PLATELET COUNT 231 10^3/UL (140-415); RED BLOOD COUNT 4.63 10^6/ul (4.70-6.10); RED CELL DISTRIBUTION WIDTH 14.6 % (11.5-14.5); WHITE BLOOD COUNT 7.7 10^3/ul (4.8-10.8)
--- NOTE | 2017-02-11 04:24 | RADRPT ---
PROCEDURE: Chest. CLINICAL INDICATION: Chest pain. TECHNIQUE: Single frontal view of the chest was obtained. COMPARISON: 02/03/2017. FINDINGS: The cardiac silhouette is magnified. The aortic arch is unremarkable. There is no focal consolidat ion, vascular congestion or pleural effusion. There is no pneumothorax. IMPRESSION: No evidence for active cardiopulmonary disease. .Zeyad Kilgore MD, MD Date Time Electronically viewed and signed by .Zeyad Kilgore MD, on 02/11/2017 04:23 .T/
[2017-02-11 04:29] LABS: CHLORIDE 101 mmol/L (97-110); POTASSIUM 4.1 mmol/L (3.5-5.1); SODIUM 141 mmol/L (135-144)
[2017-02-11 04:30] LABS: INR 0.91; PARTIAL THROMBOPLASTIN TIME 27.8 Sec (25.0-35.0); PROTIME 12.3 Sec (12.2-14.2)
[2017-02-11 04:32] LABS: ANION GAP 16 (8-16); BLOOD UREA NITROGEN 27 mg/dl (7-20); CARBON DIOXIDE 28 mmol/L (21-31); CREATININE 1.18 mg/dl (0.61-1.24)
[2017-02-11 04:33] LABS: CALCIUM 10.1 mg/dl (8.4-10.2); GLUCOSE 95 mg/dl (70-220)
[2017-02-11 04:49] LABS: TROPONIN-I < 0.012 ng/ml (0.00-0.12)
--- NOTE | 2017-02-11 05:12 | ERD ---
ER Documentation Chief Complaint Date/Time DATE: 02/11/17 TIME: 05:08 Chief Complaint CP X2 hours ago. BIBA. Pt denies SOB HPI This is a 71-year-old male comes in with chest pain for 2 hours. Brought in by ambulance. Denies shortness of breath. He was seen here earlier today for headache. He was discharged earlier. He left and now claims he has chest pain. He again asks to be admitted to the hospital. He was asking the previous physician with a different complaint for the same end result. He declines to elucidate the nature of his chest pain despite multiple questions ROS All systems reviewed and are negative except as per history of present illness. Medications Home Meds Active Scripts Acetaminophen* (Tylophen*) 500 Mg Capsule, 2 CAP PO Q8H Y for PAIN AND OR ELEVATED TEMP, #20 CAP Prov:ANIYAH REEDER MD 02/10/17 Reported Medications Diphenoxylate HCl/Atropine (Diphenoxylate-Atrop 2.5-0.025) 1 Each Tablet, 2.5- 25 PO Q8, #30 01/27/17 Ferrous Sulfate* (Ferrous Sulfate*) 325 Mg Tabec, 325 MG PO BID, TAB 01/27/17 Lisinopril* (Lisinopril*) 40 Mg Tablet, 40 MG PO DAILY, #30 TAB 01/27/17 Tamsulosin Hcl* (Flomax*) 0.4 Mg Cap.er.24h, 0.4 MG PO DAILY, CAP 01/27/17 Ezetimibe* (Zetia*) 10 Mg Tablet, 10 MG PO HS, TAB 01/27/17 Escitalopram Oxalate* (Lexapro*) 20 Mg Tablet, 20 MG PO DAILY, #30 TAB 01/27/17 Metformin Hcl* (Metformin Hcl* ER) 500 Mg Tab.sr.24h, PO DAILY 05/01/13 Amlodipine Besylate* (Amlodipine Besylate*) 10 Mg Tablet, PO DAILY 05/01/13 Allergies Allergies: Coded Allergies: Penicillins (Verified Allergy, Unknown, 02/03/17) celecoxib (Verified Allergy, Unknown, RASH, 02/03/17) egg (Verified Allergy, Unknown, 02/03/17) PMhx/Soc History of Surgery: Yes (RT KNEE REPLACEMENT BACK SURGERIES) Anesthesia Reaction: No Hx Neurological Disorder: Yes (stroke) Hx Respiratory Disorders: No Hx Cardiac Disorders: Yes (htn CHF) Hx Psychiatric Problems: No Hx Miscellaneous Medical Probl: Yes (DM) Hx Alcohol Use: Yes Hx Substance Use: No Hx Tobacco Use: Yes Smoking Status: Current every day smoker Physical Exam Vitals Vital Signs Date Time Temp Pulse Resp B/P Pulse Ox O2 Delivery O2 Flow Rate FiO2 02/11/17 01:03 97.6 62 20 184/84 99 Physical Exam Const: [] Head: Atraumatic Eyes: Normal Conjunctiva ENT: Normal External Ears, Nose and Mouth. Neck: Full range of motion..~ No meningismus. Resp: Clear to auscultation bilaterally Cardio: Regular rate and rhythm, no murmurs Abd: Soft, non tender, non distended. Normal bowel sounds Skin: No petechiae or rashes Back: No midline or flank tenderness Ext: No cyanosis, or edema Neur: Awake and alert Psych: Normal Mood and Affect Result Diagram: 02/11/17 0355 02/11/17 0355 Results 24 hrs Laboratory Tests Test 02/11/17 03:55 White Blood Count 7.710^3/ul Red Blood Count 4.6310^6/ul Hemoglobin 12.9g/dl Hematocrit 40.0% Mean Corpuscular Volume 86.4fl Mean Corpuscular Hemoglobin 27.9pg Mean Corpuscular Hemoglobin Concent 32.3g/dl Red Cell Distribution Width 14.6% Platelet Count 34253^3/UL Mean Platelet Volume 11.3fl Neutrophils % 57.0% Lymphocytes % 29.4% Monocytes % 7.5% Eosinophils % 4.7% Basophils % 0.9% Nucleated Red Blood Cells % 0.0/100WBC Neutrophils # 4.410^3/ul Lymphocytes # 2.310^3/ul Monocytes # 0.610^3/ul Eosinophils # 0.410^3/ul Basophils # 0.110^3/ul Nucleated Red Blood Cells # 0.010^3/ul Prothrombin Time 12.3Sec Prothrombin Time Ratio 1.0 INR International Normalized Ratio 0.91 Activated Partial Thromboplast Time 27.8Sec Sodium Level 141mmol/L Potassium Level 4.1mmol/L Chloride Level 101mmol/L Carbon Dioxide Level 28mmol/L Anion Gap 16 Blood Urea Nitrogen 27mg/dl Creatinine 1.18mg/dl Glucose Level 95mg/dl Calcium Level 10.1mg/dl Troponin I < 0.012ng/ml Procedures/MDM EKG: Rate/Rhythm: [Normal Sinus Rhythm] QRS, ST, T-waves: [No changes consistent w/ acute ischemia] Impression: [No evidence of ischemia or arrhythmia] Chest X-ray 1V Interpreted by me: Soft Tissue: No acute abnormalities Bones: No acute abnormalities Mediastinum/Cardiac Silhouette/Lungs: [No acute abnormalities] Patient's thoracic symptoms have stabilized while in the department and are stable for outpatient follow up. Exam and work up not consistent w/ ischemia, arrhythmia, PE or dissection. Departure Diagnosis: Primary Impression: Chest pain Chest pain type: unspecified Qualified Code: R07.9 - Chest pain, unspecified type Condition: Stable Patient Instructions: Chest Pain, Uncertain Cause MELANIE GRIMM February 11, 2017 05:12
[2017-02-11 06:04] VITALS: BP 177/82; PULSE 82; RESP 18
== END 2017-02-11 10:00 | disposition home or self-care (01) ==
LOC: E/R 00:42
DX: R07.9 Chest pain, unspecified (principal); F17.210 Nicotine dependence, cigarettes, uncomplicated; I10 Essential (primary) hypertension; E11.9 Type 2 diabetes mellitus without complications; I50.9 Heart failure, unspecified; Z79.84 Long term (current) use of oral hypoglycemic drugs; Z96.652 Presence of left artificial knee joint
CPT/HCPCS: 36415; 71010; 80048; 84484; 85025; 85610; 85730; 93005